=== PATIENT | male | born 1970 | race Caucasian/White ===

== ENCOUNTER 2016-08-08 13:31 | Emergency (ER) | payer MEDICAID ==
[2016-08-08 17:33] LABS: % IMMATURE GRANULYOCYTES 0.1 % (0.0-1.1); ABSOLUTE IMMATURE GRANULOCYTES 0.01 10^3/uL (0.00-0.10); ADD DIFF? NO; ADD MORPH? NO; ADD SCAN? NO; ATYPICAL LYMPHOCYTE FLAG 20 (0-99); FRAGMENT RBC FLAG 0 (0-99); HEMATOCRIT 43.7 % (40.0-51.0); HEMOGLOBIN 14.9 g/dL (13.7-17.5); LEFT SHIFT FLG 0 (0-99); LIPEMIA HEMOLYSIS FLAG 90 (0-99); MEAN CELL HEMOGLOBIN 29.6 pg (27.9-34.1); MEAN CELL HEMOGLOBIN CONCENTR. 34.1 g/dL (32.4-36.7); MEAN CELL VOLUME 86.9 fL (81.5-99.8); MEAN PLATELET VOLUME 9.4 fL (8.7-11.7); PLATELET CLUMPS FLAG 0 (0-99); PLATELET COUNT 252 10^3/uL (150-400); RED BLOOD CELL COUNT 5.03 10^6/uL (4.40-6.38); RED CELL DISTRIBUTION WIDTH 12.5 % (11.5-15.2)
--- NOTE | 2016-08-08 17:49 | EDPHY ---
H & P Stated Complaint: ruq abd pain and nausea Time Seen by Provider: 08/08/16 17:13 HPI/ROS: CHIEF COMPLAINT: Right upper quadrant abdominal pain HISTORY OF PRESENT ILLNESS: 46-year-old male presents emergency department complaining of right upper quadrant abdominal pain intermittent for the past year. Patient states he has been getting pain after eating about once a month into the last 2 weeks when it is coming every few days. Patient now reports after eating he becomes nauseous and vomits. He has had vomiting after eating the last 3 days. Patient reports intermittent fevers over the past year with these episodes, no recent fever. Patient reports diarrhea for the past 2 months. 1 episode daily, he denies blood or melena in stools, no blood in vomit. Patient rarely drinks alcohol, denies drug use, does not smoke cigarettes. REVIEW OF SYSTEMS: A comprehensive 10 point review of systems is otherwise negative aside from elements mentioned in the history of present illness. Source: Patient Exam Limitations: No limitations - Personal History Current Tetanus/Diphtheria Vaccine: Unsure - Medical/Surgical History Hx Asthma: No Hx Chronic Respiratory Disease: No Hx Diabetes: No Hx Cardiac Disease: No Hx Renal Disease: No Hx Cirrhosis: No Hx Alcoholism: No Hx HIV/AIDS: No Hx Splenectomy or Spleen Trauma: No Other PMH: sleep apnea - Social History Smoking Status: Never smoked Alcohol Use: Rarely Drug Use: None - Physical Exam Exam: Physical Exam Gen: Alert and Oriented, NAD HEENT: PERRL, moist mucous membranes NECK: no meningismus CV: regular rate and regular rhythm PULM: CTAB, no wheezes ABDOMEN: Obese, soft, right upper quadrant tenderness to palpation with positive Contreras's, BS present BACK: No CVA tenderness NEURO: Neurologically grossly intact EXTREMITIES: normal appearing SKIN: no rash or break in skin on exposed skin PSYCH: answers questions appropriately. Constitutional: Initial Vital Signs Temperature (C) 36.8 C 08/08/16 14:09 Heart Rate 69 08/08/16 14:09 Respiratory Rate 18 08/08/16 14:09 Blood Pressure 131/103 H 08/08/16 14:09 O2 Sat (%) 95 08/08/16 14:09 O2 Delivery Mode Room Air Allergies/Adverse Reactions: No Known Allergies Allergy (Unverified 08/08/16 14:08) Home Medications: Medication Instructions Recorded Ranitidine HCl [Zantac] 150 mg PO BID #30 tablet 08/08/16 Medical Decision Making - Diagnostics Imaging Results: Imaging Impressions Abdomen Ultrasound 08/08/16 17:19 Impression: 1. No cholelithiasis, biliary dilation, hydronephrosis, or free fluid. 2. Minimal hepatic steatosis. Findings discussed with Emergency Department, Sadie Lou N.P., on July at 1830 hours. Imaging: Discussed imaging studies w/ outbound call center representative Radiologist ED Course/Re-evaluation: IV established, CBC, chemistry, lipase, LFTs and right upper quadrant ultrasound has been ordered. Patient with normal CBC, chemistry, normal lipase and normal liver functions. Right upper quadrant ultrasound is unremarkable and shows no evidence of gallstones or cholecystitis. Repeat abdominal examination shows no peritoneal signs. Patient is given a prescription for Zantac, this could be gastroesophageal reflex. Since this is been going on for a year I do not think there is an emergent surgical abdomen. Patient is given a primary care doctor to establish care with. He is given strict return precautions for any worsening symptoms, new symptoms or concerns. Differential Diagnosis: Epigastric pain including but not limited to biliary colic, cholecystitis, peptic ulcer disease, pancreatitis, and gastroenteritis. - Data Points Laboratory Results: Laboratory Results 08/08/16 17:25 08/08/16 17:25 08/08/16 08/08/16 17:25 17:25 WBC 8.22 10^3/uL 10^3/uL (3.80-9.50) RBC 5.03 10^6/uL 10^6/uL (4.40-6.38) Hgb 14.9 g/dL g/dL (13.7-17.5) Hct 43.7 % % (40.0-51.0) MCV 86.9 fL fL (81.5-99.8) MCH 29.6 pg pg (27.9-34.1) MCHC 34.1 g/dL g/dL (32.4-36.7) RDW 12.5 % % (11.5-15.2) Plt Count 252 10^3/uL 10^3/uL (150-400) MPV 9.4 fL fL (8.7-11.7) Neut % (Auto) 45.7 % % (39.3-74.2) Lymph % (Auto) 43.8 % % (15.0-45.0) [place] % (Auto) 8.5 % % (4.5-13.0) Eos % (Auto) 1.3 % % (0.6-7.6) Baso % (Auto) 0.6 % % (0.3-1.7) Nucleat RBC Rel Count 0.0 % % (0.0-0.2) Absolute Neuts (auto) 3.75 10^3/uL 10^3/uL (1.70-6.50) Absolute Lymphs (auto) 3.60 10^3/uL H 10^3/uL (1.00-3.00) Absolute Monos (auto) 0.70 10^3/uL 10^3/uL (0.30-0.80) Absolute Eos (auto) 0.11 10^3/uL 10^3/uL (0.03-0.40) Absolute Basos (auto) 0.05 10^3/uL 10^3/uL (0.02-0.10) Absolute Nucleated RBC 0.00 10^3/uL 10^3/uL (0-0.01) Immature Gran % 0.1 % % (0.0-1.1) Immature Gran # 0.01 10^3/uL 10^3/uL (0.00-0.10) Sodium 142 mEq/L mEq/L (134-144) Potassium 3.8 mEq/L mEq/L (3.5-5.2) Chloride 105 mEq/L mEq/L (97-110) Carbon Dioxide 25 mEq/l mEq/l (22-31) Anion Gap 12 mEq/L mEq/L (8-16) BUN 13 mg/dL mg/dL (7-23) Creatinine 0.7 mg/dL mg/dL (0.7-1.3) Estimated GFR > 60 Glucose 85 mg/dL mg/dL (70-100) Calcium 9.5 mg/dL mg/dL (8.5-10.4) Total Bilirubin 1.5 mg/dL H mg/dL (0.1-1.4) Conjugated Bilirubin 0.3 mg/dL mg/dL (0.0-0.5) Unconjugated Bilirubin 1.2 mg/dL H mg/dL (0.0-1.1) AST 35 IU/L IU/L (17-59) ALT 50 IU/L IU/L (21-72) Alkaline Phosphatase 105 IU/L IU/L (38-126) Total Protein 7.5 g/dL g/dL (6.3-8.2) Albumin 4.6 g/dL g/dL (3.5-5.0) Lipase 128.0 IU/L IU/L (23-300) Medications Given: Discontinued Medications Ranitidine HCl (Zantac) 150 mg PO EDNOW ONE Stop: 08/08/16 18:54 Last Admin: 08/08/16 19:14 Dose: Not Given Departure - Departure Disposition: Home, Routine, Self-Care Clinical Impression: Abdominal pain Qualifiers: Abdominal location: right upper quadrant Qualified Code(s): R10.11 - Right upper quadrant pain Condition: Good Instructions: Diet for Stomach Ulcers and Gastritis (ED), Gastroesophageal Reflux Disease (ED), Abdominal Pain (ED) Additional Instructions: Eat small frequent meals, avoid spicy, greasy and acidic foods, take 150 mg of Zantac twice daily for 2 weeks. Follow up with the a primary care doctor for symptoms that are not improving. Return to the emergency department for worsening symptoms, new symptoms or concerns. Referrals: Diogo Mcintosh MD [[facility] [place] Primary Care Provider] - As per Instructions (Primary care doctor adjuster piano action) [facility],. [Clinic] - As per Instructions Prescriptions: Ranitidine HCl [Zantac] 150 mg PO BID #30 tablet
[2016-08-08 17:52] LABS: ALANINE AMINOTRANSFERASE 50 IU/L (21-72); ALBUMIN 4.6 g/dL (3.5-5.0); ALKALINE PHOSPHATASE 105 IU/L (38-126); ANION GAP 12 mEq/L (8-16); ASPARTATE AMINOTRANSFERASE 35 IU/L (17-59); BILIRUBIN,TOTAL 1.5 mg/dL (0.1-1.4); BILIRUBIN-CONJUGATED 0.3 mg/dL (0.0-0.5); BILIRUBIN-UNCONJUGATED 1.2 mg/dL (0.0-1.1); CALCIUM 9.5 mg/dL (8.5-10.4); CARBON DIOXIDE 25 mEq/l (22-31); CHLORIDE 105 mEq/L (97-110); CREATININE 0.7 mg/dL (0.7-1.3); GLOMERULAR FILTRATION RATE > 60; GLUCOSE 85 mg/dL (70-100); POTASSIUM 3.8 mEq/L (3.5-5.2); SODIUM 142 mEq/L (134-144); TOTAL PROTEIN 7.5 g/dL (6.3-8.2)
[2016-08-08] MEDS ORDERED: RANITIDINE HCL 150 MG/10 ML UDCUP PO ONE (18:53)
[2016-08-08 19:15] VITALS: BP 131/88; PULSE 64; RESP 16; TEMP 98.4; O2SAT 96
== END 2016-08-08 19:15 | disposition home or self-care (01) ==
DX: R10.11 Right upper quadrant pain (principal)

== ENCOUNTER 2017-04-18 09:12 | Inpatient (IN) | payer MEDICAID ==
[2017-04-18] MEDS ORDERED: VANCOMYCIN HCL/NORMAL SALINE 250 ML IV ONE (09:49)
--- NOTE | 2017-04-18 09:49 | EDPHY ---
H & P Stated Complaint: R leg swelling and redness - Personal History Current Tetanus/Diphtheria Vaccine: Yes Current Tetanus Diphtheria and Acellular Pertussis (TDAP): Yes - Medical/Surgical History Hx Asthma: Yes Hx Chronic Respiratory Disease: No Hx Diabetes: No Hx Cardiac Disease: No Hx Renal Disease: No Hx Cirrhosis: No Hx Alcoholism: No Hx HIV/AIDS: No Hx Splenectomy or Spleen Trauma: No Other PMH: sleep apnea, cellulitis, appy, asthma - Social History Smoking Status: Never smoked Time Seen by Provider: 04/18/17 09:29 HPI/ROS: CHIEF COMPLAINT: Progressive right lower extremity erythema, subjective fever HISTORY OF PRESENT ILLNESS: 47-year-old immunocompetent male, no history of diabetes or peripheral vascular disease, complaining of progressive right lower extremity erythema. This has become progressively worse over the past 4 days. He was seen at [facility] in [place], given dose of ceftriaxone and started on oral cephalexin and notes the erythema is progressive in addition to subjective fever. No history of DVT. No nausea or vomiting. PRIMARY CARE PROVIDER: [facility] REVIEW OF SYSTEMS: A ten point review of systems was performed and is negative with the exception of the items mentioned in the HPI PAST MEDICAL & SURGICAL HISTORY: No pertinent medical or surgical history SOCIAL HISTORY:Nonsmoker [ PHYSICAL EXAM (Prior to examination, patient consented to physical exam, hands were washed and my usual and customary physical exam procedures followed) 1) GENERAL: Well-developed, well-nourished, alert and oriented. Appears to be in no acute distress. 2) HEAD: Normocephalic, atraumatic 3) HEENT: Pupils equal, round, reactive to light bilaterally. Sclera anicteric. 4) NECK: Full range of motion, no meningeal signs. 5) LUNGS: Clear auscultation bilaterally, no wheezes, no rhonchi, no retractions. 6) HEART: Regular rate and rhythm, no murmur, no heave, no gallop. 7) ABDOMEN: No guarding, no rebound, no focal tenderness, negative McBurney's, negative Contreras's, negative Rovsing's, negative peritoneal sign, 8) MUSCULOSKELETAL: Right lower extremity: Erythema, induration present with lymphangitic streaking. Tender right inguinal adenopathy. No crepitus. DP PT pulses present and brisk. Normal color normal temperature distally. Brisk capillary refill. Otherwise, Moving all extremities, no focal areas of tenderness, no obvious trauma. No peripheral edema or discoloration. 9) BACK: No CVA tenderness, no midline vertebral tenderness, no fluctuance, no step-off, no obvious trauma, no visual or palpable abnormality. 10) SKIN: No rash, no petechiae. 11) Psychiatric: Patient is oriented X 3, there is no agitation. DIFFERENTIAL DIAGNOSIS: In no particular include but limited to necrotizing fasciitis, DVT, cellulitis, antibiotic failure (Bobby Black) Constitutional: Initial Vital Signs Temperature (C) 36.4 C 04/18/17 09:17 Heart Rate 73 04/18/17 09:17 Respiratory Rate 16 04/18/17 09:17 Blood Pressure 145/79 H 04/18/17 09:17 O2 Sat (%) 99 04/18/17 09:17 O2 Delivery Mode Room Air Allergies/Adverse Reactions: gluten Allergy (Verified 04/18/17 10:47) Home Medications: Medication Instructions Recorded Acetaminophen [Tylenol ES 500 mg 1,000 mg PO Q4-6PRN PRN 04/18/17 (*)] Cephalexin [Keflex (*)] 500 mg PO Q6H 04/18/17 Herbals/Supplements -Info Only 1 ea PO DAILY 04/18/17 Multivitamins [Multivitamin (*)] 1 each PO DAILY 04/18/17 Medical Decision Making - Diagnostics Imaging Results: Imaging Impressions Extremity Venous Study 04/18/17 09:49 Impression: 1. There is no sonographic evidence of deep or superficial vein thrombosis in the right lower extremity. 2. Mild right calf subcutaneous edema. 3. Right groin lymphadenitis. Clinical correlation and follow-up are suggested. Findings were discussed with Devin Black PA-C at 10:33, on 04/18/2017. Images reviewed myself (Bobby Black) ED Course/Re-evaluation: 9:40 a.m.: Plan will be ultrasound, likely admission. He has failed single dose IV ceftriaxone outpatient cephalexin therapy. No known history of MRSA. Care of patient under supervision of secondary supervising physician Dr Jeannie Romero with whom I discussed case and who evaluated patient. 10:35 a.m.: Ultrasound right lower extremities negative for DVT. 10:37 a.m.: Consultation with hospitalist [place], sonido to Dr. Alexander Houser for right lower extremity cellulitis, outpatient antibiotic failure (Bobby Black) The patient was evaluated and managed by the physician's assistant production manager. My cosignature indicates that I reviewed the chart and I agree with the findings and plan of care as documented. I am the secondary supervising physician. ( Jeannie Romero) - Data Points Laboratory Results: Laboratory Results 04/18/17 09:49 04/18/17 09:49 04/18/1718 04/18/17 09:49 09:49 09:49 WBC 8.10 10^3/uL 10^3/uL (3.80-9.50) RBC 4.84 10^6/uL 10^6/uL (4.40-6.38) Hgb 14.2 g/dL g/dL (13.7-17.5) Hct 42.3 % % (40.0-51.0) MCV 87.4 fL fL (81.5-99.8) MCH 29.3 pg pg (27.9-34.1) MCHC 33.6 g/dL g/dL (32.4-36.7) RDW 12.4 % % (11.5-15.2) Plt Count 207 10^3/uL 10^3/uL (150-400) MPV 8.9 fL fL (8.7-11.7) Neut % (Auto) 55.4 % % (39.3-74.2) Lymph % (Auto) 30.6 % % (15.0-45.0) [place] % (Auto) 11.6 % % (4.5-13.0) Eos % (Auto) 1.4 % % (0.6-7.6) Baso % (Auto) 0.5 % % (0.3-1.7) Nucleat RBC Rel Count 0.0 % % (0.0-0.2) Absolute Neuts (auto) 4.49 10^3/uL 10^3/uL (1.70-6.50) Absolute Lymphs (auto) 2.48 10^3/uL 10^3/uL (1.00-3.00) Absolute Monos (auto) 0.94 10^3/uL H 10^3/uL (0.30-0.80) Absolute Eos (auto) 0.11 10^3/uL 10^3/uL (0.03-0.40) Absolute Basos (auto) 0.04 10^3/uL 10^3/uL (0.02-0.10) Absolute Nucleated RBC 0.00 10^3/uL 10^3/uL (0-0.01) Immature Gran % 0.5 % % (0.0-1.1) Immature Gran # 0.04 10^3/uL 10^3/uL (0.00-0.10) VBG Lactic Acid 1.4 mmol/L mmol/L (0.7-2.1) Sodium 144 mEq/L mEq/L (135-145) Potassium 3.8 mEq/L mEq/L (3.5-5.2) Chloride 102 mEq/L mEq/L (97-110) Carbon Dioxide 27 mEq/l mEq/l (22-31) Anion Gap 15 mEq/L mEq/L (8-16) BUN 7 mg/dL mg/dL (7-23) Creatinine 0.7 mg/dL mg/dL (0.7-1.3) Estimated GFR > 60 Glucose 90 mg/dL mg/dL (70-100) Calcium 9.2 mg/dL mg/dL (8.5-10.4) Medications Given: Discontinued Medications Vancomycin/Sodium Chloride (Vancomycin 1 Gm (Premix)) 250 mls @ 250 mls/hr IV EDNOW ONE PRN Reason: Protocol Stop: 04/18/17 10:48 Last Admin: 04/18/17 10:43 Dose: 250 mls Departure - Departure Disposition: [facility] Inpatient Acute Clinical Impression: Cellulitis of right lower extremity Condition: Fair
[2017-04-18 10:11] LABS: PLATELET COUNT 207 10^3/uL (150-400)
[2017-04-18] MEDS ORDERED: VANCOMYCIN 1 GM in D5W 250 ML IV ONE (10:30)
[2017-04-18] MEDS ORDERED: ONDANSETRON 4 MG/2 ML VIAL IVP PRN (12:24)
[2017-04-18] MEDS ORDERED: ACETAMINOPHEN 325 MG TAB PO PRN (12:24)
[2017-04-18] MEDS ORDERED: ONDANSETRON DISINTEGRATING 4 MG TAB PO PRN (12:24)
--- NOTE | 2017-04-18 12:52 | GHP ---
[f rep st] HISTORY AND PHYSICAL DATE OF ADMISSION: 04/18/2017 HISTORY OF PRESENT ILLNESS: Mr. Mcelroy is a 47-year-old gentleman with a history of obesity and recur rent cellulitis of his legs. It has happened about 12 times in the past. His symptoms typically star t with fever, malaise and vomiting which began on Saturday, which is 4 days prior to admission. On Sat, he sought care and received IM ceftriaxone and Keflex and symptoms progressed. He got progress ively worse so he now presents with worsening care. He has pain and redness and swelling around his l eg and lymphangitic streaking up his leg and groin pain. He has not had lightheadedness, dizziness o r rigors. He has no personal or family history of diabetes. He does not use injection drug use and he has no max rdware in his legs. REVIEW OF SYSTEMS: Complete 10-point review of systems conducted, negative except as noted n the HPI . PAST MEDICAL HISTORY: Obesity, used to weigh 390, now he weighs a little over 300. He also has a hi story of recurrent cellulitis on both legs, alternating. He has had about 12 episodes in this leg a n umber of years ago. ALLERGIES: Gluten. MEDICATIONS ARE: Keflex, multivitamin, turmeric, and Tylenol. SOCIAL HISTORY: Works at [employer]. Does not smoke. Rare alcohol. . FAMILY HISTORY: Reviewed and unremarkable. PHYSICAL EXAMINATION: VITAL SIGNS: 36, 145/79, pulse 73, breathing 16 times a minute, 98% on room a ir. GENERAL: No acute distress. Obese. HEENT: Sclerae anicteric. Oropharynx clear. Mucous membrane s are moist. NECK: Supple without lymphadenopathy or JVD. LUNGS: Clear to auscultation bilaterall y. HEART: S1, S2. ABDOMEN: Soft, nontender, nondistended. LOWER EXTREMITIES: His right lower ex tremity shows a collar of erythema around the leg with some lymphangitic streaking that is faint abov e his knee. There is no evidence of joint space infection in the knee or ankle. He has painful inguin al lymphadenopathy. NEUROLOGIC: Exam is nonfocal. SKIN: Otherwise without rash. LABORATORY STUDIES: White count 8, hematocrit 42, platelets are 207,000. Venous lactate is 1.4 which is a normal value. Chem 7 is normal. Ultrasound shows no DVT. I have reviewed/interpreted the imag es. I have discussed the case with LACHELLE Dukes, of the emergency department. ASSESSMENT/PLAN: A 47-year-old gentleman presents for recurrent right leg cellulitis. 1. Cellulitis. I think the patient probably has poor lymphatic drainage on the basis of obesity and perhaps genetics. He failed outpatient beta lactam management. Will start him on vancomycin now. Bl ood cultures have been drawn. I see no concern for necrotizing fasciitis and advanced imaging is not indicated at this point. 2. Recurrent cellulitis. As above, I think that these are intermittent events and further workup for underlying cause is not necessary. 3. Prophylaxis. Pharmacologic prophylaxis indicated. 4. Question sepsis. The patient does not have sepsis. 5. Obesity. Counseled the importance of keeping weight at a healthy level. 6. Disposition. Inpatient status. /[id number]/MODL
--- NOTE | 2017-04-18 16:27 | PDMN ---
Medical Necessity Medical necessity: est los>2mn for recurrent RLE cellulitis, w/probable poor lymphatic drainage r/t obesity; admit for IV Vanco; hx multiple episodes of cellulitis bilat LE's, altermating; per order and H&P 04/18/17
[2017-04-18] MEDS: VANCOMYCIN 1.25 GM in D5W 250 ML IV SCH (17:37)
[2017-04-18] MEDS ORDERED: VANCOMYCIN HCL/NORMAL SALINE 250 ML IV SCH (21:30)
[2017-04-19] MEDS: VANCOMYCIN 1.25 GM in D5W 250 ML IV SCH ×3 (02:23→19:36)
[2017-04-19] MEDS: MULTIVITAMINS 1 EACH TAB PO SCH (08:05)
[2017-04-19] MEDS: ENOXAPARIN 40 MG/0.4 ML SYR SC SCH (08:06)
--- NOTE | 2017-04-19 09:06 | HOSPPROG ---
Hospitalist Progress Note Assessment/Plan: 47 yo M w obesity and RLE cellulitis RLE cellulitis: recurrent and failed beta lactam outpt management continue vanc add'l 24 hours rec dc on bactrim or other non beta lactam abx proph: lmwh dispo: inpt Subjective: redness receded from lines and less intense but still present Objective: Vital Signs Temp Pulse Resp BP Pulse Ox 36.9 C 74 17 132/91 H 94 04/19/17 03:32 04/19/17 03:32 04/19/17 03:32 04/19/17 03:32 04/19/17 03:32 04/18/17 04/19/17 04/20/17 05:59 05:59 05:59 Intake Total 1600 Balance 1600 - Physical Exam Constitutional: no apparent distress, appears nourished Eyes: PERRL, anicteric sclera Ears, Nose, Mouth, Throat: moist mucous membranes, hearing normal Cardiovascular: regular rate and rhythym, no murmur, rub, or gallop Respiratory: no respiratory distress, no rales or rhonchi Gastrointestinal: normoactive bowel sounds, soft, non-tender abdomen Genitourinary: no bladder fullness, No lyon in urethra Skin: other (cellulitis improved but still present) Musculoskeletal: full muscle strength, no muscle tenderness Neurologic: AAOx3 ICD10 Worksheet Patient Problems: Problems Problem Status Onset Cellulitis of right lower extremity Acute
--- NOTE | 2017-04-19 09:51 | ASMTCMCOM ---
CM Note CM Note Notes: 04/19/2017 Case Management Note Reviewed chart. Case management d/c needs might include IV antibiotics at d/c. There are no other identified case management d/c needs d/t pt age, marital status and activity levels prior to admission. There are no PT or OT evals ordered at this time. Case Management to follow for possible d/c IV antibiotics. Date Signed: 04/19/2017 09:50 AM Electronically Signed By:Litzy Villatoro RN
[2017-04-20] MEDS: VANCOMYCIN 1.25 GM in D5W 250 ML IV SCH ×2 (01:28→09:50)
[2017-04-20 08:18] VITALS: BP 132/75; PULSE 64; RESP 16; TEMP 97.8; O2SAT 94
[2017-04-20] MEDS ORDERED: ENOXAPARIN 40 MG/0.4 ML SYR SC SCH (09:15)
[2017-04-20] MEDS: MULTIVITAMINS 1 EACH TAB PO SCH (09:50)
[2017-04-20] MEDS: ENOXAPARIN 40 MG/0.4 ML SYR SC SCH (10:35)
--- NOTE | 2017-04-20 11:39 | ASDISCHSUM ---
Discharge Information Plan Status:Home with No Needs Medically Cleared to Leave:04/19/2017 Discharge Date:04/19/2017 CM D/C Disposition:Home, Routine, Self-Care ADT D/C Disposition:Home, Routine, Self-Care Projected Discharge Date:04/19/2017 Transportation at D/C: Discharge Delay Reason: Follow-Up Date:04/19/2017 Discharge Slot: Final Diagnosis: Placement Information Patient Contact Information Contact Name:DONTE Relationship: Address:[address] [address] Work Phone: City:[facility] Phone: State/Zip Code:[place] [address] Email: Financial Information Financial Class: Primary Plan Desc:[employer] Primary Plan Number:[id number] Secondary Plan Desc: Secondary Plan Number: Assessment Information [facility] CM Progress Note CM Note CM Note Notes: 04/19/2017 Case Management Note Reviewed chart. Case management d/c needs might include IV antibiotics at d/c. There are no other identified case management d/c needs d/t pt age, marital status and activity levels prior to admission. There are no PT or OT evals ordered at this time. Case Management to follow for possible d/c IV antibiotics. Date Signed: 04/19/2017 09:50 AM Electronically Signed By:Litzy Villatoro RN Case Management Discharge Plan Note Case Management Discharge Discharge Order Complete? Answers: Yes Patient to Obtain Answers: via Family Medications Transportation Arranged Answers: Family/Friends Family Notified Answers: Yes Discharge Comments Notes: Pt transitioned from IV ABX to po. He is discharging home with family and no CM needs. Date Signed: 04/20/2017 11:37 AM Electronically Signed By:WILI Rodgers Intervention Information
--- NOTE | 2017-04-20 20:46 | GDS ---
[f rep st] DISCHARGE SUMMARY DISCHARGE DIAGNOSES: 1. Acute cellulitis of the right lower extremity. 2. Obesity. HISTORY OF PRESENT ILLNESS: A 47-year-old male with a history of obesity and recurrent cellulitis of his legs, who presents with rapidly progressing erythema from his right calf to his upper thigh. Fo r details of the patient's initial presentation, please see the history and physical dated 04/18/2017 . CONSULTATIVE SERVICES: None. PROCEDURES: On 04/18/2017, the patient had an ultrasound of the right lower extremity that was negat guille for deep venous thrombosis. HOSPITAL COURSE: Acute right lower extremity cellulitis. The patient had initially been started on Keflex in the outpatient setting with progression of symptoms, was transitioned to IV vancomycin with improvement in his erythema and pain over the course of the first 24 hours of his stay. On the day of disposition, the erythema has nearly entirely receded. He will be transitioned to oral doxycyclin e to complete 7 additional days of antibiotics in the outpatient setting. He will follow with his [facility] care provider after completion of antibiotic therapy for reexamination and followup. MEDICATIONS AT THE TIME OF DISPOSITION: Please reference the med rec printed on 04/20/2017. FOLLOWUP APPOINTMENTS: Primary care provider with [facility] in approximately 1 week's time. PENDING STUDIES: Blood cultures, which are preliminary no growth to date at the time of his discharg e. TIME SPENT: I spent greater than 30 minutes in the planning and coordination of this discharge. /[id number]/MODL
== END 2017-04-20 13:39 | disposition home or self-care (01) | DRG 603 ==
LOC: OBSVTOIN 10:55 → F3N 14:50
PROVIDERS: ADMIT Internal Medicine; ATTEND Hospitalist
DX: L03.115 Cellulitis of right lower limb (principal); E66.9 Obesity, unspecified; Z68.42 Body mass index [BMI] 45.0-49.9, adult; G47.33 Obstructive sleep apnea (adult) (pediatric); J45.909 Unspecified asthma, uncomplicated
CPT/HCPCS: 96374; J1650; J3370